=== PATIENT | female | born 1990 | race African-American/Black ===

== ENCOUNTER 2017-04-22 20:36 | Emergency (ER) | payer SELFPAY ==
[2017-04-22] MEDS ORDERED: ASPIRIN 81 MG TABLET, CHEWABLE PO ONE (20:37)
--- NOTE | 2017-04-22 20:50 | EKG REPORT ---
SEVERITY:- BORDERLINE ECG - SINUS RHYTHM SHORT CA INTERVAL, ACCELERATED AV CONDUCTION, WPW BORDERLINE PROLONGED QT INTERVAL : Confirmed by: Lobo Castro 22-Apr-2017 20:50:16
--- NOTE | 2017-04-22 21:15 | ER Document Report ---
ED General - General Chief Complaint: Chest Pain Stated Complaint: SHORTNESS OF BREATH Time Seen by Provider: 04/22/17 21:12 Mode of Arrival: Ambulatory Information source: Patient Notes: This is a 26-year-old female who presents to the emergency room with shortness of breath, palpitations several times a day for the past 3 days. Patient denies any fever, chills, nausea or vomiting. Past medical history: None Medicines: Sertraline for depression - HPI Onset: Last week Onset/Duration: Gradual Quality of pain: No pain Severity: None Pain Level: Denies Associated symptoms: Shortness of breath. denies: Chest pain, Fever Exacerbated by: Denies Relieved by: Denies Similar symptoms previously: Yes Recently seen / treated by doctor: No - Related Data Allergies/Adverse Reactions: No Known Allergies Allergy (Verified 04/22/17 20:38) Past Medical History - General Information source: Patient - Social History Smoking Status: Current Every Day Smoker Cigarette use (# per day): Yes - 10 cigarettes a day Chew tobacco use (# tins/day): No Smoking Education Provided: No Frequency of alcohol use: None Drug Abuse: None Lives with: Other - daughter Family History: None Patient has suicidal ideation: No Patient has homicidal ideation: No - Past Medical History Cardiac Medical History: Reports: Other - Palpitations Pulmonary Medical History: Reports: None EENT Medical History: Reports: None Neurological Medical History: Reports: None Endocrine Medical History: Reports: None Renal/ Medical History: Reports: None Malignancy Medical History: Reports: None GI Medical History: Reports: None Traumatic Medical History: Reports: None Infectious Medical History: Reports: None Past Surgical History: Reports: Hx Section Review of Systems - Review of Systems Constitutional: denies: Chills, Fever EENT: No symptoms reported Cardiovascular: See HPI, Palpitations, Heart racing Respiratory: See HPI Gastrointestinal: No symptoms reported Genitourinary: No symptoms reported Female Genitourinary: No symptoms reported Musculoskeletal: No symptoms reported Skin: No symptoms reported Hematologic/Lymphatic: No symptoms reported Neurological/Psychological: No symptoms reported Physical Exam - Vital signs Vitals: Pulse Ox 99 04/22/17 20:37 Notes: Physical exam: GENERAL: 26-year-old female, alert and oriented 3, no acute distress patient does appear. He did did, blood pressure 136/97, pulse 105, Respiratory rate 20, O2 saturation 100% on room air. HEAD: Atraumatic, normocephalic. EYES: Pupils equal round and reactive to light, extraocular movements intact, sclera anicteric, conjunctiva are normal. ENT: TMs normal, nares patent, oropharynx clear without exudates. Moist mucous membranes. NECK: Normal range of motion, supple without obvious mass or JVD. LUNGS: Breath sounds clear to auscultation bilaterally and equal. No wheezes rales or rhonchi. HEART: Regular rate and rhythm without murmurs, rubs or gallops. ABDOMEN: Soft, normoactive bowel sounds. No tenderness to palpation. No guarding, no rebound. No masses appreciated. EXTREMITIES: Normal range of motion, no pitting or edema. No clubbing or cyanosis. NEUROLOGICAL: Cranial nerves II through XII grossly intact. Normal speech, moving all extremities. PSYCH: Normal mood, normal affect. SKIN: Warm, Dry, normal turgor, no rashes or lesions noted. Course - Re-evaluation Re-evalutation: 04/22/17 23:21 I have had a long discussion with the patient regarding her symptoms and EKG. 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 This confirms the suspicion based upon the EKG. I did have a lengthy conversation about the treatment available for WPW i.e. ablation. The patient is going to follow-up at the [facility] tomorrow and I have advised her to get a referral to a standards analyst for further evaluation (Holter, echo and EP consultation). As far as why her symptoms of worse in the last 3 days, the patient states she has been under a lot of stress lately at home. She is a single mom and works. She does not use any stimulants (other than hot chocolate ) and cigarettes. I have advised her to try and back off on those and get some sleep. She was observed in the emergency room on Holter monitor, we saw no arrhythmias. While her TSH was mildly elevated, her free T4 was normal. The rest of her labs were normal. Her chest x-ray looked good. Her oxygen saturation on room air was 100%. Her lungs are clear. I have very low suspicion for PE based upon how she looks in her perfect oxygen saturation. I have given her a copy of the EKG, chest x-ray report and labs so that she can bring them to the [facility] - Vital Signs Vital signs: Temp Pulse Resp BP Pulse Ox 98.5 F 113 H 19 117/79 99 04/22/17 20:51 04/22/17 21:17 04/22/17 22:01 04/22/17 22:01 04/22/17 22:01 - Laboratory Result Diagrams: 04/22/17 21:35 04/22/17 21:35 Laboratory results interpreted by me: 04/22/17 04/22/17 04/22/17 21:35 21:35 21:35 Hgb 11.6 L Hct 33.9 L Eosinophils % 6.5 H Carbon Dioxide 21 L Glucose 118 H TSH 5.26 H - Diagnostic Test Radiology reviewed: Image reviewed - EKG Interpretation by Me Rate: Normal Rhythm: NSR - EKG shows normal sinus rhythm with a ventricular rate of 95, there is a short WI interval and a delta wave consistent with WPW. There is no old EKG to compare. Discharge - Discharge Clinical Impression: Palpitations Condition: Stable Disposition: HOME, SELF-CARE Additional Instructions: Thank you for choosing [facility] for your care. The examination and treatment you have received in the Emergency Department today has been rendered on an emergency basis only and is not intended to be a substitute for complete medical care. You should contact your follow-up physician as it is important that he or she examine you for any new or remaining problems. If given a copy of any lab tests or radiology reports, please bring them with you when you see your physician. If your problem worsens or new symptoms appear and you are unable to arrange prompt follow-up care, return to the Emergency Department. Specific signs to look out for: Chest pain, worsening palpitations that persist, feelings of fainting. Any other instructions: I would like you to avoid caffeine. I would like you to call the [facility] and schedule an appointment: Let them know that she been having palpitations and the ER doctor did recommend to just be seen by a standards analyst for workup of WPW. bring a copy of today's labs, and chest x-ray and EKG report. Forms: Return to Work
--- NOTE | 2017-04-22 21:22 | RADIOLOGY REPORT (SQ) ---
EXAM DESCRIPTION: CHEST SINGLE VIEW COMPLETED DATE/TIME: 04/22/2017 9:08 pm REASON FOR STUDY: chest pain COMPARISON: None. EXAM PARAMETERS: NUMBER OF VIEWS: One view. TECHNIQUE: Single frontal radiographic view of the chest acquired. RADIATION DOSE: NA LIMITATIONS: None. FINDINGS: LUNGS AND PLEURA: No opacities, masses or pneumothorax. No pleural effusion. MEDIASTINUM AND HILAR STRUCTURES: No masses. Contour normal. HEART AND VASCULAR STRUCTURES: Heart normal in size. Normal vasculature. BONES: No acute findings. HARDWARE: None in the chest. OTHER: No other significant finding. IMPRESSION: NO ACUTE RADIOGRAPHIC FINDING IN THE CHEST. TECHNICAL DOCUMENTATION: JOB ID: [id number] [employer]- All Rights Reserved
[2017-04-22 21:55] LABS: ABSOLUTE BASOPHILS # (AUTO) 0.1 10^3/uL (0.0-0.2); ABSOLUTE EOSINOPHILS # (AUTO) 0.4 10^3/uL (0.0-0.6); ABSOLUTE LYMPHOCYTES (AUTO) 2.2 10^3/uL (0.5-4.7); ABSOLUTE MONOCYTES (AUTO) 0.5 10^3/uL (0.1-1.4); ABSOLUTE NEUT (AUTO) 3.4 10^3/uL (1.7-8.2); EOSINOPHILS % (AUTO) 6.5 % (0-6); HEMATOCRIT 33.9 % (36.0-47.0); HEMOGLOBIN 11.6 g/dL (12.0-15.5); HGB HCT DIFFERENCE 0.9; LYMPHOCYTES % (AUTO) 33.4 % (13-45); MEAN CORPUSCULAR HEMOGLOBIN 29.4 pg (27.0-33.4); MEAN CORPUSCULAR HGB CONC 34.1 g/dL (32.0-36.0); MEAN CORPUSCULAR VOLUME 86 fl (80-97); MONOCYTES % (AUTO) 7.3 % (3-13); RED BLOOD COUNT 3.94 10^6/uL (3.72-5.28); RED CELL DISTRIBUTION WIDTH 13.7 % (11.5-14.0); SEGMENTED NEUTROPHILS % (AUTO) 51.8 % (42-78); WHITE BLOOD COUNT 6.6 10^3/uL (4.0-10.5)
[2017-04-22 22:12] LABS: ALANINE AMINOTRANSFERASE 21 U/L (9-52); ALBUMIN 4.6 g/dL (3.5-5.0); ALKALINE PHOSPHATASE 57 U/L (38-126); ANION GAP 13 (5-19); ASPARTATE AMINO TRANSFERASE 21 U/L (14-36); BILIRUBIN,DIRECT 0.3 mg/dL (0.0-0.4); BILIRUBIN,TOTAL 0.3 mg/dL (0.2-1.3); BLOOD UREA NITROGEN 10 mg/dL (7-20); CALCIUM 9.6 mg/dL (8.4-10.2); CARBON DIOXIDE 21 mmol/L (22-30); CHLORIDE 103 mmol/L (98-107); CREATINE KINASE 103 U/L (30-135); CREATININE RESULT 0.63 mg/dL (0.52-1.25); GLUCOSE 118 mg/dL (75-110); POTASSIUM 4.1 mmol/L (3.6-5.0); SODIUM 137.3 mmol/L (137-145); TOTAL PROTEIN 7.7 g/dL (6.3-8.2)
[2017-04-22 22:30] LABS: CREATINE KINASE MB < 0.22 ng/mL (<4.55); TROPONIN I < 0.012 ng/mL
[2017-04-22 22:42] LABS: THYROID STIMULATING HORMONE 5.26 uIU/mL (0.47-4.68)
[2017-04-22 23:19] VITALS: BP 117/79
== END 2017-04-22 23:41 | disposition home or self-care (01) ==
LOC: ER 20:36
DX: R00.2 Palpitations (principal); R07.9 Chest pain, unspecified; R06.02 Shortness of breath; F17.210 Nicotine dependence, cigarettes, uncomplicated
CPT/HCPCS: 36415; 71010; 80053; 82550; 82553; 84439; 84443; 84484; 84702; 85025; 93005; 93010; 99285

== ENCOUNTER 2017-07-30 10:26 | Emergency (ER) | payer BC ==
[2017-07-30] MEDS ORDERED: KETOROLAC TROMETHAMINE INJ/PF 30 MG/1 ML SDV IM ONE (10:54)
[2017-07-30] MEDS ORDERED: DEXAMETHASONE SOD PHOS INJ 10 MG/1 ML VIAL IM ONE (10:54)
--- NOTE | 2017-07-30 11:01 | ER Document Report ---
HPI - HPI Pain Level: Denies Notes: Patient is a 26-year-old female with a history of Pbbqd-Dpsrbswbn-Pyxjn and chronic intermittent palpitations who presents to the ED complaining of left- sided neck soreness and occasional stiffness on the left side after she woke up this morning. Patient states that her symptoms have actually improved since this morning. Patient states that her symptoms feel like a muscle spasm with occasional tingling in her left arm. Patient states that turning her head and pushing on the left side of her neck does increase her discomfort. Patient states that she has had a stiff neck like this in the past. Patient states that she has otherwise been healthy without any other recent illness. Patient is ambulatory without dyspnea on exertion or chest pains. She denies any drug allergies. Denies any injections or procedures to her back or neck. Denies any IV drug use. No other significant past medical history. Denies any headache, fever, head injury, changes in vision/speech/mentation/hearing, URI, sore throat, chest pain, palpitations, syncope, cough, shortness of breath, wheeze, dyspnea, abdominal pain, nausea/vomiting/diarrhea, urinary retention, dysuria, hematuria, loss of control of bowel or bladder, numbness/tingling, saddle anesthesia, muscle paralysis/weakness, or rash. - ROS Systems Reviewed and Negative: Yes All other systems reviewed and negative Past Medical History - Social History Smoking Status: Never Smoker Family History: None Renal/ Medical History: Denies: Hx Peritoneal Dialysis Past Surgical History: Reports: Hx Section Vertical Provider Document - CONSTITUTIONAL Agree With Documented VS: Yes Notes: PHYSICAL EXAMINATION: GENERAL: Well-appearing, well-nourished and in no acute distress. A&Ox4. Answers questions appropriately. HEAD: Atraumatic, normocephalic. EYES: Pupils equal round and reactive to light, extraocular movements intact, sclera anicteric, conjunctiva are normal. ENT: Nares patent and without discharge. oropharynx clear without exudates. No tonsilar hypertrophy or erythema. Moist mucous membranes. NECK: Normal range of motion, supple without lymphadenopathy. No rigidity. No midline tenderness. Spurling negative. + mild tenderness to the left c- paraspinal mm into the traps laterally and inferiorly (correlates with pain described). Kernig/brudzinski neg. LUNGS: Breath sounds clear to auscultation bilaterally and equal. No wheezes rales or rhonchi. HEART: Regular rate and rhythm without murmurs, rubs, gallops. Musculoskeletal: UE's b/l: FROM to passive/active. Strength 5+/5. No deficits noted. No bony tenderness of extremities. N/V intact distal. Back: FROM to passive/active. Strength 5+/5. No vertebral point tenderness, stepoffs, or deformities. No other bony tenderness or ecchymosis. SLR negative b/l. Extremities: No cyanosis, clubbing, or edema b/l. Peripheral pulses 2+. Capillary refill less than 2 seconds. NEUROLOGICAL: MMSE intact. Cranial nerves grossly intact. Normal speech, normal gait. Normal sensory, motor exams. Reflexes 2+ b/l. ROSALIO's negative. PSYCH: Normal mood, normal affect. SKIN: Warm, Dry, normal turgor, no rashes or lesions noted. - INFECTION CONTROL TRAVEL OUTSIDE OF THE [place] IN LAST 30 DAYS: No - RESPIRATORY O2 Sat by Pulse Oximetry: 93 Course - Re-evaluation Re-evalutation: 07/30/17 10:58 Patient is an afebrile, well-hydrated, 26-year-old female presents to the ED with muscle spasming to the left neck/trapezius muscle. Vitals are stable. PE is otherwise unremarkable for any focal neurological deficits. Kernig and Brudzinski were negative. An EKG was obtained upon arrival, but I do not warrant its necessity as she is here complaining of left-sided neck spasming without any cardiopulmonary symptoms. Patient states that she has a known chronic arrhythmia and is not concerned about that today. Low suspicion for any meningitis, fracture, expanding/ruptured AAA, cauda equina syndrome, epidural mass lesion/abscess, herniated disc causing severe spinal stenosis, or other systemic infection at this time. Patient is aware that her condition can change from initial presentation and that she needs monitor symptoms closely for any acute changes. Toradol and Decadron given today. I will send her home with a prescription for baclofen. Conservative measures otherwise for symptoms. Recheck with your PCM in 2-3 days. Return to the ED with any worsening/concerning symptoms otherwise as reviewed discharge. Patient is in agreement. Reviewed EKG and case with Dr. Loja who is in agreement with disposition and plan. - Vital Signs Vital signs: Temp Pulse Resp BP Pulse Ox 98.9 F 92 18 130/90 H 93 07/30/17 10:31 07/30/17 10:31 07/30/17 10:31 07/30/17 10:31 07/30/17 10:31 Discharge - Discharge Clinical Impression: Trapezius muscle spasm Cervical strain, acute Qualifiers: Encounter type: initial encounter Qualified Code(s): S16.1XXA - Strain of muscle, fascia and tendon at neck level, initial encounter Condition: Stable Disposition: HOME, SELF-CARE Instructions: Muscle Relaxers ([facility]), Neck Injury (Cervical Strain) ([facility]) Additional Instructions: Rest, Ice Tylenol/ibuprofen as needed Light stretches daily Strength exercises as able Moist heat and massage may help F/u with your PCP in 3-5 days for a recheck Consider consult(s) with Orthopedics/physical therapy for ongoing/worsening symptoms Return to the ED with any worsening symptoms and/or development of fever, headache, chest pain, palpitations, syncope, shortness of breath, trouble breathing, abdominal pain, n/v/d, blood in stool/urine, loss of control of bowel /bladder, urinary retention, muscle weakness/paralysis, saddle anesthesia, numbness/tingling, or other worsening symptoms that are concerning to you. Prescriptions: Baclofen [Baclofen 10 mg Tablet] 5 - 10 mg PO BID PRN #10 tablet PRN Reason: Forms: Elevated Blood Pressure Referrals: [facility] [Provider Group] - Follow up as needed
[2017-07-30 11:28] VITALS: BP 137/88
--- NOTE | 2017-07-30 13:16 | EKG REPORT ---
SEVERITY:- ABNORMAL ECG - SINUS ARRHYTHMIA, RATE 60-91 VENT PREEXCITATION, MIDSEPTAL TRICUSPID ANNULUS ACCESSORY PATHWAY : Confirmed by: Gary Arzate MD 30-Jul-2017 13:16:01
== END 2017-07-30 11:30 | disposition home or self-care (01) ==
LOC: ER 10:26
DX: S16.1XXA Strain of muscle, fascia and tendon at neck level, initial encounter (principal); M62.830 Muscle spasm of back; M54.2 Cervicalgia; M43.6 Torticollis; I45.6 Pre-excitation syndrome; R00.2 Palpitations; R20.0 Anesthesia of skin; X58.XXXA Exposure to other specified factors, initial encounter
CPT/HCPCS: 93005; 99283; 96372; 93010; J1885; J1100

== ENCOUNTER 2017-09-06 23:52 | Emergency (ER) | payer BC ==
[2017-09-07 00:21] VITALS: BP 140/83
--- NOTE | 2017-09-07 08:00 | EKG REPORT ---
SEVERITY:- ABNORMAL ECG - SINUS RHYTHM SHORT MO INTERVAL, ACCELERATED AV CONDUCTION = ACCESSORY PATHWAY : Confirmed by: Gary Arzate MD 07-Sep-2017 07:59:34
== END 2017-09-07 01:40 | disposition left against medical advice (07) ==
LOC: ER 23:52
DX: Z53.21 Procedure and treatment not carried out due to patient leaving prior to being seen by health care provider (principal)
CPT/HCPCS: 93005; 93010

== ENCOUNTER 2017-09-07 14:23 | Emergency (ER) | payer BC ==
--- NOTE | 2017-09-07 14:53 | ER Document Report ---
ED Cardiac - General Chief Complaint: Chest Pain Stated Complaint: CHEST PAIN Time Seen by Provider: 09/07/17 14:32 Notes: The patient is a 26-year-old female, past medical history WPW, current smoker, presents with 2 days of constant left upper chest pain and tingling into her shoulder. She came to the ER this morning, but left due to the weight. She called EMS and was given 324 mg aspirin and a single sublingual nitro with relief of her chest pain. 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 She denies syncope, palpitations, leg swelling, nausea, vomiting, hemoptysis, shortness of breath, back pain, abdominal pain or rash. TRAVEL OUTSIDE OF THE [place] IN LAST 30 DAYS: No - Related Data Allergies/Adverse Reactions: No Known Allergies Allergy (Verified 07/30/17 10:29) Past Medical History - General Information source: Patient - Social History Smoking Status: Current Every Day Smoker Frequency of alcohol use: None Drug Abuse: None Family History: None Renal/ Medical History: Denies: Hx Peritoneal Dialysis Past Surgical History: Reports: Hx Section Review of Systems - Review of Systems Notes: REVIEW OF SYSTEMS: CONSTITUTIONAL: -fevers, -chills EENT: -eye pain, -difficulty swallowing, -nasal congestion CARDIOVASCULAR: +chest pain, -syncope. RESPIRATORY: -cough, -SOB GASTROINTESTINAL: -abdominal pain, -nausea, -vomiting, -diarrhea GENITOURINARY: -dysuria, -hematuria MUSCULOSKELETAL: -back pain, -neck pain SKIN: -rash or skin lesions. HEMATOLOGIC: -easy bruising or bleeding. LYMPHATIC: -swollen, enlarged glands. NEUROLOGICAL: -altered mental status or loss of consciousness, -headache, - neurologic symptoms PSYCHIATRIC: -anxiety, -depression. ALL OTHER SYSTEMS REVIEWED AND NEGATIVE. Physical Exam - Notes Notes: PHYSICAL EXAMINATION: GENERAL: Well-appearing, well-nourished and in no acute distress. HEAD: Atraumatic, normocephalic. EYES: Pupils equal round and reactive to light, extraocular movements intact, sclera anicteric, conjunctiva are normal. ENT: nares patent, oropharynx clear without exudates. Moist mucous membranes. NECK: Normal range of motion, supple without lymphadenopathy LUNGS: Breath sounds clear to auscultation bilaterally and equal. No wheezes rales or rhonchi. HEART: Regular rate and rhythm without murmurs ABDOMEN: Soft, nontender, normoactive bowel sounds. No guarding, no rebound. No masses appreciated. EXTREMITIES: Normal range of motion, no pitting or edema. No cyanosis. NEUROLOGICAL: Cranial nerves grossly intact. Normal speech, normal gait. Normal sensory and motor exams. PSYCH: Normal mood, normal affect. SKIN: Warm, Dry, normal turgor, no rashes or lesions noted. Course - Re-evaluation Re-evalutation: Patient appears very well and she does not have any chest pain. Her EKG does not show any arrhythmias or ischemic changes. 2 sets of troponins are also negative. Her HEART score is 1 and she has no risk factors for PEs at this time. With her history of WPW, will provide her follow-up with cardiology. Given strict return precautions and he understands. - Laboratory Result Diagrams: 09/07/17 15:56 09/07/17 15:56 Laboratory results interpreted by me: 09/07/17 15:56 Hgb 11.9 L Hct 35.5 L RDW 15.1 H - Diagnostic Test Radiology reviewed: Image reviewed, Reports reviewed Radiology results interpreted by me: CXR: NAD - EKG Interpretation by Me EKG shows normal: Sinus rhythm, [place] Rate: Normal When compared to previous EKG there are: No significant change Additional EKG results interpreted by me: Delta wave with short SC, no STEMI Discharge - Discharge Clinical Impression: Chest pain Qualifiers: Chest pain type: unspecified Qualified Code(s): R07.9 - Chest pain, unspecified Condition: Stable Disposition: HOME, SELF-CARE Additional Instructions: CHEST PAIN OF UNCLEAR CAUSE: The exact cause of your chest pain isn't clear. Fortunately, there is no evidence of a dangerous medical condition. Further testing may be required to find the source of the pain. Most often, we find that this pain is coming from the chest wall -- the muscles or rib joints in the chest. But chest pain can come from the lung and lung lining, the esophagus, the heart valves or heart lining, and even the stomach or gallbladder. Rest. Eat lightly until the pain is gone. We may prescribe medicine for pain and inflammation. You should call the physician immediately if the pain radiates to the shoulder, jaw or arms; if you start to run a fever or develop a cough; or if you develop shortness of breath, or other new or alarming symptoms. NORMAL EXAM AND WORKUP: At this time, your examination and workup show no significant abnormality. No significant abnormal physical findings were noted. All laboratory, EKG, and imaging (x-ray, CT scans, ultrasound) studies that were ordered show no significant abnormality. Although your examination and all studies that were ordered showed no significant abnormal finding, there are no examinations and no studies that are 100% accurate. There is always the possibility that some abnormality could exist and not be detected with physical examination or within the limits and capabilities of laboratory and other studies. You should return or follow up as you were instructed on your visit today for further evaluation if your symptoms do not resolve. CHEST WALL PAIN: Your chest pain may be coming from the chest wall. This is often caused by straining the muscles or joints in the chest during physical activity, direct trauma, coughing, or vigorous vomiting. Persons with arthritis are especially prone to this type of pain, due to inflammation of the cartilage joints near the breast bone. Occasionally, no cause can be found. Rest from strenuous physical activity. This kind of chest pain is usually made worse by movement of the chest. Depending on the symptoms, we may prescribe medicine for pain, muscle relaxation, and antiinflammatory effects. If the pain is new, and seems to be due to muscle strain, cold packs can help. Otherwise, apply gentle warmth to the painful area for 15 minutes every hour or two. You should call contact the doctor immediately if things change. Further evaluation is needed if you develop a fever or cough, if the nature of the pain changes, or if you become short of breath. ANGINA EPISODE: Your physician has diagnosed the pain you experienced as an episode of angina. Angina occurs when a portion of the heart muscle temporarily lacks oxygen. It does not cause any permanent heart damage, but serves as a warning. Hospitalization is not necessary now. Evaluation of your cardiac condition , and medical therapy for angina will be necessary. It's important you be sure to keep all appointments and take medication exactly as prescribed. Angina is usually treated with a type of "nitrate" medication. This is available as ointment, pills, or sublingual (under the tongue) tablets. Depending on your clinical situation, other medications may be added to help control angina. These may include beta blockers or calcium blockers. If episodes of angina are occurring with increased frequency, or if chest pain lasts longer than 15 minutes or does not respond to nitroglycerin, you must seek emergency medical care immediately. FOLLOW-UP CARE: If you have been referred to a physician for follow-up care, call the physician s office for an appointment as you were instructed or within the next two days. If you experience worsening or a significant change in your symptoms, notify the physician immediately or return to the Emergency Department at any time for re-evaluation. Referrals: TANI BYNUM MD [ACTIVE STAFF] - Follow up as needed
--- NOTE | 2017-09-07 15:16 | RADIOLOGY REPORT (SQ) ---
EXAM DESCRIPTION: CHEST SINGLE VIEW COMPLETED DATE/TIME: 09/07/2017 3:08 pm REASON FOR STUDY: chest pain COMPARISON: AP chest 04/22/2017 EXAM PARAMETERS: NUMBER OF VIEWS: One view. TECHNIQUE: Single frontal radiographic view of the chest acquired. RADIATION DOSE: NA LIMITATIONS: None. FINDINGS: LUNGS AND PLEURA: No opacities, masses or pneumothorax. No pleural effusion. MEDIASTINUM AND HILAR STRUCTURES: No masses. Contour normal. HEART AND VASCULAR STRUCTURES: Heart normal in size. Normal vasculature. BONES: No acute findings. HARDWARE: None in the chest. OTHER: No other significant finding. IMPRESSION: NO ACUTE RADIOGRAPHIC FINDING IN THE CHEST. TECHNICAL DOCUMENTATION: JOB ID: [id number] [employer]- All Rights Reserved Reading location - IP/workstation name: [email or web address]
[2017-09-07 16:10] LABS: ABSOLUTE EOSINOPHILS # (AUTO) 0.3 10^3/uL (0.0-0.6); ABSOLUTE LYMPHOCYTES (AUTO) 1.5 10^3/uL (0.5-4.7); ABSOLUTE MONOCYTES (AUTO) 0.4 10^3/uL (0.1-1.4); ABSOLUTE NEUT (AUTO) 3.4 10^3/uL (1.7-8.2); BASOPHILS % (AUTO) 0.8 % (0-2); EOSINOPHILS % (AUTO) 5.7 % (0-6); HEMATOCRIT 35.5 % (36.0-47.0); HEMOGLOBIN 11.9 g/dL (12.0-15.5); LYMPHOCYTES % (AUTO) 26.2 % (13-45); MEAN CORPUSCULAR HEMOGLOBIN 27.7 pg (27.0-33.4); MEAN CORPUSCULAR HGB CONC 33.6 g/dL (32.0-36.0); MEAN CORPUSCULAR VOLUME 82 fl (80-97); MONOCYTES % (AUTO) 7.3 % (3-13); PLATELET COUNT 350 10^3/uL (150-450); RED BLOOD COUNT 4.31 10^6/uL (3.72-5.28); RED CELL DISTRIBUTION WIDTH 15.1 % (11.5-14.0); TOTAL CELLS COUNTED % (AUTO) 100 %; WHITE BLOOD COUNT 5.7 10^3/uL (4.0-10.5)
[2017-09-07 16:34] LABS: ALANINE AMINOTRANSFERASE 21 U/L (9-52); ALBUMIN 4.6 g/dL (3.5-5.0); ALKALINE PHOSPHATASE 70 U/L (38-126); ANION GAP 14 (5-19); ASPARTATE AMINO TRANSFERASE 21 U/L (14-36); BILIRUBIN,DIRECT 0.2 mg/dL (0.0-0.4); BILIRUBIN,TOTAL 0.2 mg/dL (0.2-1.3); BLOOD UREA NITROGEN 8 mg/dL (7-20); CALCIUM 9.7 mg/dL (8.4-10.2); CARBON DIOXIDE 24 mmol/L (22-30); CHLORIDE 104 mmol/L (98-107); CREATINE KINASE 82 U/L (30-135); GLUCOSE 87 mg/dL (75-110); POTASSIUM 4.2 mmol/L (3.6-5.0); SODIUM 141.9 mmol/L (137-145); TOTAL PROTEIN 7.7 g/dL (6.3-8.2)
--- NOTE | 2017-09-07 18:56 | EKG REPORT ---
SEVERITY:- BORDERLINE ECG - SINUS RHYTHM SHORT AK INTERVAL, ACCELERATED AV CONDUCTION BORDERLINE T ABNORMALITIES, INFERIOR LEADS : Confirmed by: Gary Arzate MD 07-Sep-2017 18:55:57
[2017-09-07 19:25] VITALS: BP 124/76
== END 2017-09-07 19:33 | disposition home or self-care (01) ==
LOC: ER 14:23
DX: R07.9 Chest pain, unspecified (principal); M25.512 Pain in left shoulder; F17.200 Nicotine dependence, unspecified, uncomplicated
CPT/HCPCS: 36415; 71045; 80053; 82550; 84484; 84703; 85025; 93005; 93010; 99285

== ENCOUNTER 2017-12-30 22:01 | Emergency (ER) | payer BC ==
[2017-12-30 22:10] VITALS: BP 137/89
== END 2017-12-30 23:15 | disposition left against medical advice (07) ==
LOC: ER 22:01
DX: Z53.21 Procedure and treatment not carried out due to patient leaving prior to being seen by health care provider (principal)

== ENCOUNTER 2018-06-16 22:59 | Emergency (ER) | payer BC ==
[2018-06-16 23:19] VITALS: BP 132/86
--- NOTE | 2018-06-17 08:05 | EKG REPORT ---
SEVERITY:- ABNORMAL ECG - SINUS RHYTHM ACCESSORY PATHWAY CONDUCTION : Confirmed by: Gary Arzate MD 17-Jun-2018 08:04:45
== END 2018-06-17 00:40 | disposition left against medical advice (07) ==
LOC: ER 22:59
DX: Z53.21 Procedure and treatment not carried out due to patient leaving prior to being seen by health care provider (principal)
CPT/HCPCS: 93005; 93010

== ENCOUNTER 2018-08-30 00:23 | Emergency (ER) | payer BC ==
--- NOTE | 2018-08-30 03:11 | ER Document Report ---
ED Medical Screen (RME) - General Chief Complaint: Chest Pressure Stated Complaint: CHEST PAIN,ARM PAIN,NIGHT SWEATS Time Seen by Provider: 08/30/18 03:07 Mode of Arrival: Ambulatory Information source: Patient Notes: Patient is an otherwise healthy 27-year-old female presenting with 3-day history of intermittent chest pain. Patient reports the pain feels like a pressure to the left side of the chest and states that it comes and goes with multiple symptoms. Patient states sometimes she has pain that radiates straight through to her back, sometimes she has left arm pain and sometimes she has sweats. Patient denies any nausea. Reports occasional shortness of breath. Patient is in no acute distress at this time. Exam: Lungs are clear to auscultation bilaterally. Heart sounds S1-S2 present with no ectopy noted. I have greeted and performed a rapid initial assessment of this patient. A comprehensive ED assessment and evaluation of the patient, analysis of test results and completion of the medical decision making process will be conducted by additional ED providers. Dictation of this chart was performed using voice recognition software; therefore, there may be some unintended grammatical errors. TRAVEL OUTSIDE OF THE [place] IN LAST 30 DAYS: No - Related Data Allergies/Adverse Reactions: No Known Allergies Allergy (Verified 07/30/17 10:29) Past Medical History - Past Medical History Cardiac Medical History: Reports: Hx Hypertension Pulmonary Medical History: Reports: Hx Asthma Renal/ Medical History: Denies: Hx Peritoneal Dialysis Past Surgical History: Reports: Hx Section, Hx Orthopedic Surgery - wisdom teeth Physical Exam - Vital signs Vitals: Temp Pulse Resp BP Pulse Ox 98.0 F 70 18 135/92 H 99 08/30/18 00:27 08/30/18 00:27 08/30/18 00:27 08/30/18 00:27 08/30/18 00:27 Course - Vital Signs Vital signs: Temp Pulse Resp BP Pulse Ox 98.0 F 70 18 135/92 H 99 08/30/18 00:27 08/30/18 00:27 08/30/18 00:27 08/30/18 00:27 08/30/18 00:27
[2018-08-30 04:20] LABS: ABSOLUTE BASOPHILS # (AUTO) 0.1 10^3/uL (0.0-0.2); ABSOLUTE EOSINOPHILS # (AUTO) 0.3 10^3/uL (0.0-0.6); ABSOLUTE MONOCYTES (AUTO) 0.3 10^3/uL (0.1-1.4); ABSOLUTE NEUT (AUTO) 2.1 10^3/uL (1.7-8.2); BASOPHILS % (AUTO) 1.2 % (0-2); EOSINOPHILS % (AUTO) 5.9 % (0-6); HEMATOCRIT 32.9 % (36.0-47.0); HEMOGLOBIN 10.6 g/dL (12.0-15.5); LYMPHOCYTES % (AUTO) 42.4 % (13-45); MEAN CORPUSCULAR HEMOGLOBIN 25.7 pg (27.0-33.4); MEAN CORPUSCULAR HGB CONC 32.4 g/dL (32.0-36.0); MEAN CORPUSCULAR VOLUME 79 fl (80-97); PLATELET COUNT 381 10^3/uL (150-450); RED BLOOD COUNT 4.14 10^6/uL (3.72-5.28); RED CELL DISTRIBUTION WIDTH 15.5 % (11.5-14.0); SEGMENTED NEUTROPHILS % (AUTO) 43.5 % (42-78); TOTAL CELLS COUNTED % (AUTO) 100 %; WHITE BLOOD COUNT 4.7 10^3/uL (4.0-10.5)
[2018-08-30 04:46] LABS: ALANINE AMINOTRANSFERASE 22 U/L (9-52); ALBUMIN 4.1 g/dL (3.5-5.0); ALKALINE PHOSPHATASE 48 U/L (38-126); ANION GAP 8 (5-19); ASPARTATE AMINO TRANSFERASE 16 U/L (14-36); BILIRUBIN,DIRECT 0.2 mg/dL (0.0-0.4); BILIRUBIN,TOTAL 0.3 mg/dL (0.2-1.3); BLOOD UREA NITROGEN 11 mg/dL (7-20); CALCIUM 9.5 mg/dL (8.4-10.2); CARBON DIOXIDE 22 mmol/L (22-30); CHLORIDE 109 mmol/L (98-107); GLUCOSE 94 mg/dL (75-110); POTASSIUM 4.1 mmol/L (3.6-5.0); TOTAL PROTEIN 7.2 g/dL (6.3-8.2)
--- NOTE | 2018-08-30 05:00 | RADIOLOGY REPORT (SQ) ---
EXAM DESCRIPTION: XR CHEST 1 VIEW COMPLETED DATE/TME: 08/30/2018 03:08 CLINICAL HISTORY: 27 years, Female, chest pain COMPARISON: None. NUMBER OF VIEWS: 1 TECHNIQUE: Portable chest LIMITATIONS: None. FINDINGS: Heart size normal. Lungs clear. No pneumothorax IMPRESSION: Negative chest copyright 2010 [facility] [facility] [employer]- All Rights Reserved
--- NOTE | 2018-08-30 05:33 | ER Document Report ---
ED General - General Chief Complaint: Chest Pressure Stated Complaint: CHEST PAIN,ARM PAIN,NIGHT SWEATS Time Seen by Provider: 08/30/18 03:07 Mode of Arrival: Ambulatory Notes: Patient is an otherwise healthy 27-year-old female presenting with 3-day history of intermittent chest pain. Patient reports the pain feels like a pressure to the left side of the chest and states that it comes and goes with multiple symptoms. Patient states sometimes she has pain that radiates straight through to her back, sometimes she has left arm pain and sometimes she has sweats. Patient denies any nausea. Reports occasional shortness of breath. Patient is in no acute distress at this time. TRAVEL OUTSIDE OF THE [place] IN LAST 30 DAYS: No - Related Data Allergies/Adverse Reactions: No Known Allergies Allergy (Verified 07/30/17 10:29) Past Medical History - General Information source: Patient - Social History Smoking Status: Current Every Day Smoker Family History: None Patient has suicidal ideation: No Patient has homicidal ideation: No - Past Medical History Cardiac Medical History: Reports: Hx Hypertension Pulmonary Medical History: Reports: Hx Asthma Renal/ Medical History: Denies: Hx Peritoneal Dialysis Past Surgical History: Reports: Hx Section, Hx Orthopedic Surgery - wisdom teeth - Immunizations Immunizations up to date: Yes Review of Systems - Review of Systems Constitutional: No symptoms reported EENT: No symptoms reported Cardiovascular: Chest pain Respiratory: See HPI Gastrointestinal: See HPI Genitourinary: No symptoms reported Female Genitourinary: No symptoms reported Musculoskeletal: No symptoms reported Skin: No symptoms reported Hematologic/Lymphatic: No symptoms reported Neurological/Psychological: No symptoms reported Physical Exam - Vital signs Vitals: Temp Pulse Resp BP Pulse Ox 98.0 F 70 18 135/92 H 99 08/30/18 00:27 08/30/18 00:27 08/30/18 00:27 08/30/18 00:27 08/30/18 00:27 - Notes Notes: PHYSICAL EXAMINATION: GENERAL: Well-appearing, well-nourished and in no acute distress. HEAD: Atraumatic, normocephalic. EYES: Pupils equal round and reactive to light, extraocular movements intact, conjunctiva are normal. ENT: Nares patent, oropharynx clear without exudates. Moist mucous membranes. NECK: Normal range of motion, supple without lymphadenopathy LUNGS: Breath sounds clear to auscultation bilaterally and equal. No wheezes rales or rhonchi. HEART: Regular rate and rhythm without murmurs ABDOMEN: Soft, nontender, nondistended abdomen. No guarding, no rebound. No masses appreciated. Female : deferred Musculoskeletal: Normal range of motion, no pitting or edema. No cyanosis. NEUROLOGICAL: Cranial nerves grossly intact. Normal speech, normal gait. Normal sensory, motor exams PSYCH: Normal mood, normal affect. SKIN: Warm, Dry, normal turgor, no rashes or lesions noted. Course - Re-evaluation Re-evalutation: Patient is a well-appearing 27-year-old female. She is nontoxic and all of her vital signs are within normal limits. At the time of arrival she denies any chest pain. She reports the chest pain has been intermittent over the last 3 days with random associated symptoms as outlined in the HPI. Her workup today is unremarkable. Her chest x-ray is negative. Her EKG shows a sinus rhythm with normal axis and no ST segment elevations or depressions. Her labs including troponin are normal. She has a heart score of 1. All test results were discussed with patient, patient will be discharged home in stable condition, ED return precautions were discussed. - Vital Signs Vital signs: Temp Pulse Resp BP Pulse Ox 98.0 F 70 14 104/69 98 08/30/18 00:27 08/30/18 00:27 08/30/18 05:53 08/30/18 05:53 08/30/18 05:53 - Laboratory Result Diagrams: 08/30/18 03:54 08/30/18 03:54 Laboratory results interpreted by me: 08/30/18 08/30/18 03:54 03:54 Hgb 10.6 L Hct 32.9 L MCV 79 L MCH 25.7 L RDW 15.5 H Chloride 109 H Discharge - Discharge Clinical Impression: Chest pain Qualifiers: Chest pain type: unspecified Qualified Code(s): R07.9 - Chest pain, unspecified Condition: Stable Disposition: HOME, SELF-CARE Additional Instructions: Chest Pain of Unclear Cause The exact cause of your chest pain isn't clear. Fortunately, there is no evidence of a dangerous medical condition. Further testing may be required to find the source of the pain. Most often, we find that this pain is coming from the chest wall -- the muscles or rib joints in the chest. But chest pain can come from the lung and lung lining, the esophagus, the heart valves or heart lining, and even the stomach or gallbladder. Rest. Eat lightly until the pain is gone. We may prescribe medicine for pain and inflammation. You should call the physician immediately if the pain radiates to the shoulder, jaw or arms; if you start to run a fever or develop a cough; or if you develop shortness of breath, or other new or alarming symptoms. Your workup today was negative. Please follow-up with your primary care provider if your symptoms persist. Please return to the emergency department with any new or worsening symptoms. Forms: Return to Work
[2018-08-30 05:55] VITALS: BP 104/69
--- NOTE | 2018-08-30 10:16 | EKG REPORT ---
SEVERITY:- ABNORMAL ECG - SINUS RHYTHM VENT PREEXCITATION, RIGHT ACCESSORY PATHWAY : Confirmed by: Cherelle Zapata MD 30-Aug-2018 10:15:58
== END 2018-08-30 05:55 | disposition home or self-care (01) ==
LOC: ER 00:23
DX: R07.89 Other chest pain (principal); M79.602 Pain in left arm; R61 Generalized hyperhidrosis; F17.200 Nicotine dependence, unspecified, uncomplicated; J45.909 Unspecified asthma, uncomplicated; R06.02 Shortness of breath; I10 Essential (primary) hypertension
CPT/HCPCS: 36415; 71045; 80053; 84484; 85025; 93005; 93010; 99284

== ENCOUNTER 2019-02-10 00:49 | Emergency (ER) | payer BC ==
[2019-02-10] MEDS ORDERED: DEXAMETHASONE SOD PHOS INJ 10 MG/1 ML VIAL IV ONE (02:04)
[2019-02-10] MEDS ORDERED: METOCLOPRAMIDE HCL INJ/PF 10 MG/2 ML SDV IV ONE (02:05)
--- NOTE | 2019-02-10 02:07 | ER Document Report ---
ED General - General Chief Complaint: Chest Wall Pain Stated Complaint: CHEST, JAW PAIN Time Seen by Provider: 02/10/19 01:53 Notes: Patient is a 20-year-old female that comes emergency department for chief complaint of chest wall pain. She states she was seen initially 2 weeks ago, diagnosed with chest wall pain, she states the pain is in a particular area that she can poke over the left mid chest and when she does so it hurts. She states it also hurts with movement of the left arm and shoulder. She denies injury. She states that she was given Flexeril and Mobic, she states the Mobic helps but she was only supposed to take it once a day. She also states that she has had intermittent but frequent headaches and she has a follow-up scheduled for this as well. She denies head injury. She denies fever/chills, nausea/vomiting, shortness of breath. She denies any daily prescribed medications otherwise. She denies smoking or recreational drugs. TRAVEL OUTSIDE OF THE [place] IN LAST 30 DAYS: No - Related Data Allergies/Adverse Reactions: No Known Allergies Allergy (Verified 07/30/17 10:29) Past Medical History - General Information source: Patient - Social History Smoking Status: Former Smoker Chew tobacco use (# tins/day): No Frequency of alcohol use: None Drug Abuse: None Lives with: Family Family History: None Patient has suicidal ideation: No Patient has homicidal ideation: No - Past Medical History Cardiac Medical History: Reports: Hx Hypertension Pulmonary Medical History: Reports: Hx Asthma Renal/ Medical History: Denies: Hx Peritoneal Dialysis Past Surgical History: Reports: Hx Section, Hx Orthopedic Surgery - wisdom teeth - Immunizations Immunizations up to date: Yes Review of Systems - Review of Systems Constitutional: No symptoms reported EENT: No symptoms reported Cardiovascular: See HPI Respiratory: See HPI Gastrointestinal: No symptoms reported Genitourinary: No symptoms reported Female Genitourinary: No symptoms reported Musculoskeletal: See HPI Skin: No symptoms reported Hematologic/Lymphatic: No symptoms reported Neurological/Psychological: See HPI Physical Exam - Vital signs Vitals: Temp Pulse Resp BP Pulse Ox 97.9 F 73 16 145/94 H 99 02/10/19 01:08 02/10/19 01:08 02/10/19 01:08 02/10/19 01:08 02/10/19 01:08 - Notes Notes: GENERAL: Alert, interacts well. No acute distress. HEAD: Normocephalic, atraumatic. EYES: Pupils equal, round, and reactive to light. Extraocular movements intact. Some photophobia. ENT: Oral mucosa moist, tongue midline. Oropharynx unremarkable. Airway patent. Nares patent, no nasal septal hematoma, TM's intact. NECK: Full range of motion. Supple. Trachea midline. LUNGS: Clear to auscultation bilaterally, no wheezes, rales, or rhonchi. No respiratory distress. There is point tenderness over the left chest wall at the third and fourth intercostal rib spaces. No erythema, swelling, induration, fluctuance. No signs of trauma. Pain is worse with range of motion of the left arm. HEART: Regular rate and rhythm. No murmur ABDOMEN: Soft, non-tender. Non-distended. Bowel sounds present in all 4 quadrants. GENITOURINARY: Deferred EXTREMITIES: Moves all 4 extremities spontaneously. No edema, normal radial and dorsalis pedis pulses bilaterally. No cyanosis. BACK: no cervical, thoracic, lumbar midline tenderness. No saddle anesthesia, normal distal neurovascular exam. Moves all extremities in full range of motion. NEUROLOGICAL: Alert and oriented x3. Normal speech. Cranial nerves II through XII grossly intact. PSYCH: Normal affect, normal mood. SKIN: Warm, dry, normal turgor. No rashes or lesions noted. Course - Re-evaluation Re-evalutation: EKG unremarkable. Chest x-ray unremarkable. Patient with very specific point tenderness over the chest wall which is worse with movement. This does appear to be chest wall tenderness only. Very low suspicion of ACS. No recreational drug use. Unremarkable vital signs. Patient did have photophobia and reporting a headache, reporting a band around her head sensation frequently recently. Suspect she is having tension headaches. Headache is not new, has been intermittent, was not maximal at onset, she has no neurological deficits. She was treated with Reglan and dexamethasone. On reevaluation I discussed results, patient is requesting to leave, states she feels much better. Patient will be treated for tension headache, she has been treated with dexamethasone for both headaches and chest wall pain, discussed follow-up and return precautions. Patient states understanding and agreement. Stable at time of discharge. - Vital Signs Vital signs: Temp Pulse Resp BP Pulse Ox 97.6 F 86 20 122/79 99 02/10/19 04:15 02/10/19 04:15 02/10/19 04:15 02/10/19 04:15 02/10/19 04:15 - EKG Interpretation by Me Additional EKG results interpreted by me: EKG sinus arrhythmia varying between a rate of lower 50s to 80s. Normal axis. QTC of 431. AL interval of 124. No T wave inversions or ST segment changes in consecutive leads. Discharge - Discharge Clinical Impression: Chest wall pain Headache Qualifiers: Headache type: unspecified Headache chronicity pattern: acute headache Intractability: not intractable Qualified Code(s): R51 - Headache Condition: Stable Disposition: HOME, SELF-CARE Additional Instructions: Your chest x-ray and EKG do not show concerning findings. Your evaluation does suggest chest wall pain. You have been medicated with dexamethasone for this. You can continue your current medications for this as well. Follow-up with primary care for additional management. Symptoms should gradually resolve. You can apply heat over the area I also recommend he apply heat over your neck and take the Fioricet as needed for suspected tension headaches. Return if you worsen including severe worsening headache, vomiting, difficulty breathing, worsening chest pain, fever, or any other concerning symptoms. Prescriptions: Butalb/Acetaminophen/Caffeine [Fioricet (50-325-40 mg) Tablet] 1 tab PO Q4HP PRN #20 tab PRN Reason: Forms: Return to Work
--- NOTE | 2019-02-10 02:52 | RADIOLOGY REPORT (SQ) ---
EXAM DESCRIPTION: XR CHEST 2 VIEWS COMPLETED DATE/TME: 02/10/2019 02:05 CLINICAL HISTORY: 28 years Female, chest pain COMPARISON:Aug 30 2018 NUMBER OF VIEWS/TECHNIQUE: 2, Frontal, Lateral FINDINGS: Increased lung volume, clear parenchyma, normal cardiac silhouette, and intact bony thorax. IMPRESSION: No acute cardiopulmonary findings.
[2019-02-10 05:10] VITALS: BP 122/79
--- NOTE | 2019-02-11 09:13 | EKG REPORT ---
SEVERITY:- OTHERWISE NORMAL ECG - SINUS ARRHYTHMIA, RATE [id number] : Confirmed by: Lobo Castro 11-Feb-2019 09:13:03
== END 2019-02-10 04:15 | disposition home or self-care (01) ==
LOC: ER 00:49
DX: R07.89 Other chest pain (principal); R51 Headache; I10 Essential (primary) hypertension
CPT/HCPCS: 93005; 99285; 96374; 96375; 71046; 93010; J2765; J1100

== ENCOUNTER 2019-02-22 10:21 | Emergency (ER) | payer BC ==
[2019-02-22 10:26] VITALS: BP 158/78
--- NOTE | 2019-02-22 11:17 | ER Document Report ---
ED General - General Chief Complaint: Back Pain Stated Complaint: BACK PAIN, JOINT PAIN, THROAT ITCHING Time Seen by Provider: 02/22/19 10:36 Primary Care Provider: HERMELINDA MAZARIEGOS MD [ACTIVE PROVISIONAL STAFF] - Follow up in 1 week (for ortho follow up) TRAVEL OUTSIDE OF THE [place] IN LAST 30 DAYS: No - HPI Notes: 28 year old female to the ED with multiple complaints. States that she has been having upper back pain for the past 3 months. States that she also has been experiencing pain into bilateral wrists that seems to get worse at night with some finger tingling. She also states that she works at a [employer] for most of her time at work. Also reports itching that has been ongoing for 2 weeks. This started after using a new product. Denies any rash. Denies any fevers, chills. She also reports itching in her throat and sore throat for about three weeks as well. She was given steroids by her provider one week ago, which seemed to help, but once she completed them, her symptoms returned. - Related Data Allergies/Adverse Reactions: No Known Allergies Allergy (Verified 02/22/19 10:26) Past Medical History - General Information source: Patient - Social History Smoking Status: Former Smoker Chew tobacco use (# tins/day): No Frequency of alcohol use: None Drug Abuse: None Family History: None, Reviewed & Not Pertinent Patient has suicidal ideation: No Patient has homicidal ideation: No - Past Medical History Cardiac Medical History: Reports: Hx Hypertension Pulmonary Medical History: Reports: Hx Asthma Renal/ Medical History: Denies: Hx Peritoneal Dialysis Past Surgical History: Reports: Hx Section, Hx Orthopedic Surgery - wisdom teeth - Immunizations Immunizations up to date: Yes Review of Systems - Review of Systems Constitutional: Chills, Fever EENT: Eye pain, Double vision, Ear pain, Nose congestion, Nose discharge, Throat pain Cardiovascular: Chest pain, Palpitations, Heart racing, Orthopnea, Dyspnea, Syncope Respiratory: Cough, Short of breath Gastrointestinal: Abdominal pain, Diarrhea, Nausea, Vomiting Musculoskeletal: See HPI, Back pain Skin: Other - itchy skin Hematologic/Lymphatic: No symptoms reported Neurological/Psychological: No symptoms reported -: Yes All other systems reviewed and negative Physical Exam - Vital signs Vitals: Temp Pulse Resp BP Pulse Ox 98.4 F 94 18 158/78 H 99 02/22/19 10:25 02/22/19 10:25 02/22/19 10:25 02/22/19 10:25 02/22/19 10:25 Interpretation: Normal - General General appearance: Appears well, Alert In distress: None - HEENT Head: Normocephalic, Atraumatic Eyes: Normal Pupils: PERRL Ears: Normal External canal: Normal Tympanic membrane: Normal Sinus: Normal Nasal: Normal Mouth/Lips: Normal Mucous membranes: Normal Pharynx: No: Exudate, Peritonsillar abscess, Post nasal drainage, Retropharyngeal abscess, Tonsillar hypertrophy, Uvular edema, Potential airway comprom. Neck: Normal, Supple. No: Lymphadenopathy, Meningismus - Respiratory Respiratory status: No respiratory distress Chest status: Nontender Breath sounds: Normal Chest palpation: Normal - Cardiovascular Rhythm: Regular Heart sounds: Normal auscultation Murmur: No - Abdominal Inspection: Normal Distension: No distension Bowel sounds: Normal Tenderness: Nontender Organomegaly: No organomegaly - Back Back: Tender - there is TTP OVER THe bilateral trapezius muscles with noted muscular tightness and mild spasm.. No: Vertebra tenderness - Extremities Wrist: Nontender, Other - negative Phalen and tinel's sign. non tender to palpation over bilateral hands, wrists, elbows, and shoulders. radial pulses intact and equal, cap refill is les than 2 sec. hand transition rn is 5/5 bilaterally. no snuff box tenderness bilaterally. - Neurological Neuro grossly intact: Yes Cognition: Normal Orientation: AAOx4 Kaela Coma Scale Eye Opening: Spontaneous Kaela Coma Scale Verbal: Oriented Kaela Coma Scale Motor: Obeys Commands Maskell Coma Scale Total: 15 Speech: Normal Motor strength normal: LUE, RUE, LLE, RLE Sensory: Normal - Psychological Associated symptoms: Normal affect, Normal mood - Skin Skin Temperature: Warm Skin Moisture: Dry Skin Color: Normal, Other - no rash appreciate. no excoriations, no necrosis or sloughing of the skin. no vesicles. no erythema or edema Course - Vital Signs Vital signs: Temp Pulse Resp BP Pulse Ox 98.4 F 94 18 158/78 H 99 02/22/19 10:25 02/22/19 10:25 02/22/19 10:25 02/22/19 10:25 02/22/19 10:25 Procedures - Immobilization Wrist Pre-Proc Neuro Vasc Exam: Normal Immobilizer type: Other - velcro wrist splints Performed by: PCT Post-Proc Neuro Vasc Exam: Normal Alignment checked and good: Yes Notes: bilateral velcro wrist splints applied to aid in relief from CTS Discharge - Discharge Clinical Impression: Dermatitis, Strain of thoracic back region Carpal tunnel syndrome Qualifiers: Laterality: bilateral Qualified Code(s): G56.03 - Carpal tunnel syndrome, bilateral upper limbs Pharyngitis Qualifiers: Pharyngitis/tonsillitis etiology: unspecified etiology Qualified Code(s): J02.9 - Acute pharyngitis, unspecified Condition: Stable Disposition: HOME, SELF-CARE Instructions: Contact Dermatitis ([facility]), Carpal Tunnel Syndrome ([facility]), Muscle Strain ([facility]), Sore Throat ([facility]) Additional Instructions: FOLLOW UP WITH PRIMARY CARE FOR FURTHER MANAGEMENT OF YOUR BACK PAIN/CARPAL TUNNEL. TAKE MEDICINES PRESCRIBED. Prescriptions: Benzonatate [Tessalon Perles 100 mg Capsule] 100 mg PO Q8HP PRN #40 capsule PRN Reason: Hydroxyzine HCl [Atarax 50 mg Tablet] 50 mg PO PRN PRN #14 tablet PRN Reason: Naproxen [Naprosyn] 500 mg PO BID #20 tablet Methocarbamol [Robaxin 500 mg Tablet] 500 mg PO QID PRN #20 tablet PRN Reason: Forms: Return to Work Referrals: HERMELINDA MAZARIEGOS MD [ACTIVE PROVISIONAL STAFF] - Follow up in 1 week (for ortho follow up)
== END 2019-02-22 11:23 | disposition home or self-care (01) ==
LOC: ER 10:21
DX: L30.9 Dermatitis, unspecified (principal); M54.6 Pain in thoracic spine; G56.03 Carpal tunnel syndrome, bilateral upper limbs; J02.9 Acute pharyngitis, unspecified; M25.50 Pain in unspecified joint; I10 Essential (primary) hypertension
CPT/HCPCS: 99283; 29125; L3908 ×2

== ENCOUNTER → 2020-05-03 | Outpatient (CLI) | payer BC ==
[2020-05-03 12:55] LABS: ABSOLUTE EOSINOPHILS # (AUTO) 0.3 10^3/uL (0.0-0.6); ABSOLUTE LYMPHOCYTES (AUTO) 1.5 10^3/uL (0.5-4.7); ABSOLUTE MONOCYTES (AUTO) 0.4 10^3/uL (0.1-1.4); ABSOLUTE NEUT (AUTO) 2.8 10^3/uL (1.7-8.2); BASOPHILS % (AUTO) 0.6 % (0-2); EOSINOPHILS % (AUTO) 5.6 % (0-6); HEMATOCRIT 32.9 % (36.0-47.0); HEMOGLOBIN 10.7 g/dL (12.0-15.5); LYMPHOCYTES % (AUTO) 29.1 % (13-45); MEAN CORPUSCULAR HEMOGLOBIN 26.9 pg (27.0-33.4); MEAN CORPUSCULAR HGB CONC 32.7 g/dL (32.0-36.0); MEAN CORPUSCULAR VOLUME 82 fl (80-97); MONOCYTES % (AUTO) 7.7 % (3-13); PLATELET COUNT 307 10^3/uL (150-450); RED BLOOD COUNT 3.99 10^6/uL (3.72-5.28); RED CELL DISTRIBUTION WIDTH 15.7 % (11.5-14.0); TOTAL CELLS COUNTED % (AUTO) 100 %
[2020-05-03 13:19] LABS: ALBUMIN 4.3 g/dL (3.5-5.0); ALKALINE PHOSPHATASE 59 U/L (38-126); ANION GAP 8 (5-19); ASPARTATE AMINO TRANSFERASE 23 U/L (14-36); BILIRUBIN,DIRECT 0.1 mg/dL (0.0-0.4); BILIRUBIN,TOTAL 0.3 mg/dL (0.2-1.3); BLOOD UREA NITROGEN 9 mg/dL (7-20); CALCIUM 9.6 mg/dL (8.4-10.2); CARBON DIOXIDE 27 mmol/L (22-30); CHLORIDE 104 mmol/L (98-107); GLUCOSE 88 mg/dL (75-110); POTASSIUM 4.5 mmol/L (3.6-5.0); TOTAL PROTEIN 7.6 g/dL (6.3-8.2)
== END ==
LOC: OD 11:30
PROVIDERS: ATTEND Nurse Practitioner Acute Care
DX: R19.7 Diarrhea, unspecified (principal); R11.0 Nausea; R10.9 Unspecified abdominal pain
CPT/HCPCS: 36415; 80053; 83690; 84703; 85025